=== PATIENT | female | born 1975 | race Caucasian/White ===

== ENCOUNTER 2018-05-01 17:00 | Outpatient (CLI) | payer BC | END 2018-05-01 17:01 | disposition home or self-care (01) | LOC: SLEEPLAB 17:00 | PROVIDERS: ATTEND Internal Medicine | DX: G47.33 Obstructive sleep apnea (adult) (pediatric) (principal); R51 Headache; I10 Essential (primary) hypertension; E66.9 Obesity, unspecified; R35.1 Nocturia; Z68.41 Body mass index [BMI] 40.0-44.9, adult | CPT/HCPCS: 95806 ==

== ENCOUNTER 2018-06-11 08:29 | Outpatient (CLI) | payer BC | END 2018-06-11 08:30 | disposition home or self-care (01) | LOC: BICMAMMO 08:29 | PROVIDERS: ATTEND Family Medicine | DX: Z12.31 Encounter for screening mammogram for malignant neoplasm of breast (principal); Z80.3 Family history of malignant neoplasm of breast | CPT/HCPCS: 77063; 77067 ==

== ENCOUNTER 2019-10-16 07:30 | Outpatient (CLI) | payer BC ==
--- NOTE | 2019-10-16 10:18 | ULT ---
PELVIC ULTRASOUND: Date: 10/16/2019 HISTORY: Right lower quadrant pain. Previous hysterectomy with uterus removal. TECHNIQUE: Transabdominal and endovaginal imaging of pelvis performed. Ovaries are interrogated with Mcmullen scale, color flow, Doppler imaging, and spectral waveform analysis . FINDINGS: Uterus is not appreciated as it has been surgically removed, as per the wage analyst's notes. Left ovary is not appreciated. No fluid or mass in left adnexa. In the right adnexa, there is a large, anechoic focus measuring 3.9 x 3.3 x 2.8 cm. Ovarian cyst is f avored. Overall, the right ovary measures 3.9 x 3.8 x 4.1 cm. There is no free fluid. OVARIAN DOPPLER: There is vascular flow to the right ovary. IMPRESSION: Enlarged right ovarian cyst. Follow-up ultrasound in 8-10 weeks is recommended to ensure resolution. POS: OFF
== END 2019-10-16 07:31 | disposition home or self-care (01) ==
LOC: BICULT 07:30
PROVIDERS: ATTEND Family Medicine
DX: R10.31 Right lower quadrant pain (principal); N83.201 Unspecified ovarian cyst, right side
CPT/HCPCS: 76856

== ENCOUNTER 2019-11-15 03:40 | Emergency (ER) | payer BC ==
[2019-11-15] MEDS ORDERED: Ondansetron PF 4 MG/2 ML Vial ONE (04:12)
[2019-11-15] MEDS ORDERED: Morphine 4 MG/ML VIAL ONE (04:12)
[2019-11-15 04:20] LABS: #Eosinphils 0.1 thou/uL (0.0-0.7); #Lymphocytes 2.1 thou/uL (1.20-3.40); #Monocytes 0.5 thou/uL (0.11-0.59); #Neutrophils 6.1 thou/uL (1.40-6.50); %Basophils 0.2 % (0.0-1.0); %Eosinophils 1.4 % (0.0-10.0); %Lymphocytes 24.1 % (21.0-51.0); %Monocytes 5.8 % (0.0-10.0); %Neutrophils 68.5 % (42.0-75.0); Hemoglobin 12.6 g/dL (12.0-16.0); Mean Corpuscular HGB CONC 33.7 g/dL (32.0-36.0); Mean Corpuscular Hemoglobin 30.8 pg (27.0-31.0); Mean Corpuscular Volume 91.2 fL (78.0-98.0); Mean Platelet Volume 9.3 fL (7.4-10.4); Platelet Count 273 thou/uL (130-400); RBC Distribution Width 10.8 % (11.5-14.5); Red Blood Cell (RBC) Count 4.08 mill/uL (4.20-5.40); White Blood Cell (WBC) Count 8.9 thou/uL (4.8-10.8)
[2019-11-15] MEDS ORDERED: Ketorolac Tromethamine 30 MG/ML VIAL ONE (04:43)
[2019-11-15 04:44] LABS: ALT (SGPT) 35 U/L (8-55); AST (SGOT) 25 U/L (5-34); Albumin 4.2 g/dL (3.5-5.0); Alkaline Phosphatase 38 U/L (40-110); Anion Gap 12 mmol/L (10-20); BUN (Urea Nitrogen) 16 mg/dL (7.0-18.7); Bilirubin, Total 0.3 mg/dL (0.2-1.2); Calc. Creatinine Clearance 0 mL/min (70-130); Calcium 9.1 mg/dL (7.8-10.44); Carbon Dioxide 25 mmol/L (22-29); Chloride 104 mmol/L (98-107); Estimated GFR-MDRD 65; Glucose 141 mg/dL (70-105); Lipase 54 U/L (8-78); Potassium 3.6 mmol/L (3.5-5.1); Protein, Total 7.2 g/dL (6.0-8.3); Sodium 137 mmol/L (136-145)
[2019-11-15 05:03] LABS: Bacteria/HPF None Seen HPF (None Seen); Bilirubin Negative (Negative); Blood, Urine 2+ (Negative); Clarity Clear (Clear); Glucose, Urine (Dipstick) Normal (Negative); Leukocyte Negative Leu/uL (Negative); Nitrite Negative (Negative); Protein, Urine (Dipstick) Negative (Neg-Trace); RBC/HPF Greater than 50 HPF (0-3); Urobilinogen Normal mg/dL (Less than 2); WBC/HPF 0-3 HPF (0-3)
--- NOTE | 2019-11-15 08:41 | CT ---
PRELIMINARY REPORT/[facility]/AFTER HOURS PROCEDURE CT ABDOMEN AND PELVIS WITH INTRAVENOUS CONTRAST: CLINICAL HISTORY: RLQ ABD pain with nausea and urinary burning. No vomiting. TECHNIQUE: Axial computed tomography images of the abdomen and pelvis with intravenous contrast. CONTRAST: With Isovue-370 100 mL COMPARISON: None provided. FINDINGS: LUNG BASES: No basilar airspace consolidation or pleural effusion. LIVER: There is a mild to moderate fatty infiltration of the liver. GALLBLADDER AND BILE DUCTS: Unremarkable. No calcified stone. No ductal dilation. PANCREAS: Unremarkable. SPLEEN: Unremarkable. ADRENAL GLANDS: Unremarkable. KIDNEYS, URETERS, AND BLADDER: There is a 3 mm stone in the right distal ureter, causing mild right-s ided hydronephrosis and hydroureter. STOMACH AND BOWEL: No obstruction. No wall thickening. No CT evidence of colitis or acute diverticuli tis. APPENDIX: No CT evidence for appendicitis. PERITONEUM: No free fluid. No free air. LYMPH NODES: No lymphadenopathy. REPRODUCTIVE: Unremarkable as visualized. VASCULATURE: No aortic aneurysm. BONES: No fracture or suspicious osseous abnormality. ABDOMINAL WALL AND SOFT TISSUES: Unremarkable. IMPRESSION: There is a 3 mm stone in the right distal ureter, causing mild right-sided hydronephrosis and hydrour eter. ELECTRONICALLY SIGNED BY: Evangelina Shepherd MD Nov 15, 2019 4:32:21 AM CDT This report is intended for review by the ordering physician only, in accordance of law. If you recei ve this report in error, please call [facility] at [phone]. FINAL REPORT CT ABDOMEN AND PELVIS WITH IV CONTRAST: I agree with the preliminary report given by Dr. Evangelina Shepherd of [facility]. CODE QA POS: [facility]
[2019-11-15] MEDS ORDERED: Iopamidol-370 76% 500 ML 1 ML ONE (14:31)
== END 2019-11-15 05:32 | disposition home or self-care (01) ==
LOC: ERS 03:40
DX: N13.2 Hydronephrosis with renal and ureteral calculous obstruction (principal); R11.0 Nausea
CPT/HCPCS: 74177; 80053; 81003; 81015; 83690; 85025; 93005; 96374; 96375; J1885; J2270; J2405; Q9967